=== PATIENT | female | born 1975 | race Caucasian/White ===

== ENCOUNTER 2018-10-17 09:07 | Inpatient (IN) | payer SELFPAY ==
--- NOTE | 2018-10-17 09:27 | PDOC.EVN ---
Event Note - Event Note Event Note: [facility] accept note OBGYN Attending I just received a call form Dr Coles in the ED about Ms Lion. She was first seen in [facility] ER with abdominal pain...CT scan there shouwed possible TOAs, no appy pathology. Left was [id number] and the right was 1.7x1.5x2cm on CT. She was sent here for possible admission. I have reviewed labs from [facility]. WBC was 25 with "dirty" urine there. I have ordered: Pelvic sono CBC here CMP Cath UA GC and CHL PCR VP3 I will plave admit orders to GYNECOLOGY for IV Rocephin/Flagyl and po doxy. I will eval when she arrives to floor as I am in L&D now with other patients.
[2018-10-17] MEDS ORDERED: Morphine 4 MG/ML VIAL ONE (09:30)
[2018-10-17] MEDS ORDERED: Ondansetron PF 4 MG/2 ML Vial ONE (09:54)
[2018-10-17 09:57] LABS: Hemoglobin 11.3 g/dL (12.0-16.0); Mean Corpuscular HGB CONC 34.1 g/dL (32.0-36.0); Mean Corpuscular Hemoglobin 30.7 pg (27.0-31.0); Mean Corpuscular Volume 90.2 fL (78.0-98.0); Mean Platelet Volume 6.4 fL (7.4-10.4); Platelet Count 591 thou/uL (130-400); RBC Distribution Width 11.6 % (11.5-14.5); Red Blood Cell (RBC) Count 3.69 mill/uL (4.20-5.40); White Blood Cell (WBC) Count 27.8 thou/uL (4.8-10.8)
[2018-10-17 10:04] LABS: Bilirubin Negative (Negative); Blood, Urine Trace (Negative); Clarity CLEAR (Clear); Glucose, Urine (Dipstick) Negative (Negative); Leukocyte Negative (Negative); Nitrite Negative (Negative); Protein, Urine (Dipstick) Negative (Neg-Trace); pH, Urine 6.5 (5.0-9.0)
[2018-10-17 10:06] LABS: Bacteria/HPF None Seen HPF (None Seen); Hyaline Casts/LPF 0-3 HYALINE CAST LPF (0-3 Hyaline); Pathc Cast-AUWi Flag 0.58 (0-2.49); Squamous Epithelial 0-3 HPF (0-3)
[2018-10-17 10:12] LABS: Specific Gravity, Urine Greater than 1.060 (1.002-1.036)
[2018-10-17 10:12] LABS: ALT (SGPT) 13 U/L (8-55); AST (SGOT) 16 U/L (5-34); Albumin 3.8 g/dL (3.5-5.0); Alkaline Phosphatase 119 U/L (40-150); Anion Gap 16 mmol/L (10-20); BUN (Urea Nitrogen) 6 mg/dL (7.0-18.7); Bilirubin, Total 0.9 mg/dL (0.2-1.2); Calc. Creatinine Clearance 0 mL/min (70-130); Calcium 9.3 mg/dL (7.8-10.44); Carbon Dioxide 24 mmol/L (22-29); Chloride 104 mmol/L (98-107); Estimated GFR-MDRD 81; Globulin 3.9 g/dL (2.4-3.5); Glucose 97 mg/dL (70-105); Potassium 3.2 mmol/L (3.5-5.1); Protein, Total 7.7 g/dL (6.0-8.3); Sodium 141 mmol/L (136-145)
[2018-10-17 10:26] LABS: Band 7 % (5-11); Lymphocytes 1 % (21-51); MDiff Complete? YES; Monocytes 2 % (0-10); Neutrophil 89 % (42-75); PLT Morphology Comment Appears Increased; Reactive Lymphocytes 1 % (0-10)
--- NOTE | 2018-10-17 11:04 | ULT ---
ULTRASOUND PELVIC TRANSVAGINAL: HISTORY: Abdominal pain, pelvic pain. COMPARISON: None. FINDINGS: Uterus measures 8.2 x 4.7 x 6 cm. Endometrial thickness is 3 mm. The right ovary measures 3.1 x 2.6 x 2.4 cm with a 1.2 cm cyst. The left ovary measures 4.6 x 4.2 x 3.3 cm with a 1.7 cm cyst. Adequate flow to both ovaries. The recently described tubo-ovarian absce ss is not well defined on this examination. IMPRESSION: Poorly defined what appears to be tubo-ovarian abscesses on the CT exam. POS: [facility]
--- NOTE | 2018-10-17 11:24 | HP ---
LOCATION: ER bed 3. TIME OF EVALUATION: 10:15 this morning. The patient's consult/request for admission was from Dr. Coles (Emergency Medicine). REASON FOR ADMISSION: Suspected bilateral tuboovarian abscesses. HISTORY OF PRESENT ILLNESS: This is a 42-year-old G3, P3, whose last menstrual period was 10/10/2018 and last sexual encounter was 10/08/2018 with the same partner of 4 years, with no condom. She states abdominal pain since 04:00 this morning. She first presented to [facility], where a CT scan was done and they found bilateral ovarian masses compatible with TOAs. Ultrasound here in the ER at [facility], while I was present for the exam, shows bilateral tuboovarian abscess structures, left greater than right. The left is approximately 4 to 5 cm and the right about 2 to 3 cm. Uterus is without gross abnormality. She also states some vaginal discharge, although, she usually does not have any vaginal complaints. No fevers, no diarrhea, nausea, or vomiting. REVIEW OF SYSTEMS: Complete review of systems was checked and is otherwise negative unless specified in the HPI. PAST MEDICAL HISTORY: Significant for migraines, but she is stable and not on any medication. PAST MEDICATIONS: Included amitriptyline for migraine prophylaxis, but she has stopped using this. ALLERGIES: NONE. SOCIAL HISTORY: Negative for alcohol, tobacco, and drug use. SURGICAL HISTORY: Tubal ligation done 17 years ago. OB HISTORY: She has had 3 vaginal deliveries with the last 17 years ago. PHYSICAL EXAMINATION: VITAL SIGNS: She is afebrile, but her pulse was 120 on arrival and then was down to 113 after IV fluids. MEDICATIONS ADMINISTERED: I believe she received Unasyn in [facility], but has not received antibiotics here while she has arrived to [facility] as she is being currently evaluated. DIAGNOSTIC STUDIES: Ultrasound reveals bilateral adnexal structures as previously dictated. Labs ordered. I have ordered gonorrhea and chlamydia PCR, I have ordered a vaginitis panel 3, I have ordered our own complete blood count as the white blood cell count in [place] was elevated at 25. I have also ordered a cath urine. Interventions ordered. I have ordered IV Rocephin and IV Flagyl, doxy will be given p.o. (triple antibiotics). ASSESSMENT: This is a 42-year-old G3, P3, with the last menstrual period of 10/10/2018 with suspected pelvic infection/tuboovarian abscesses. I have discussed care with the patient to include medical therapy. Surgical therapy will be reserved for failed medical improvement. I have also discussed with her the possibility of sexually transmitted infection present, although I have no evidence that is currently the case. I will await lab and diagnostic studies. She did have some white/yellow cervical discharge on speculum examination as the PCR swabs were collected. PLAN: 1. Admission for IV triple antibiotics as discussed. 2. Ultrasound performed. 3. Present for ultrasound performance. 4. Interventions ordered as previously dictated, follow labs. 5. I have ordered a CBC for 03:00 on 10/18/2018 to follow trend. 6. I have seen and evaluated the patient in the ER at bedside. 7. Questions answered. Job ID: [id number]
[2018-10-17] MEDS: Sodium Chloride 0.9% 1,000 ML IV SCH (11:42)
[2018-10-17] MEDS ORDERED: cefTRIAXone\\ROCEPHIN 2 GM in Sodium Chloride 0.9% 100 ML IVPB SCH (11:45)
[2018-10-17] MEDS ORDERED: Ondansetron PF 4 MG/2 ML Vial IVP PRN (11:45)
[2018-10-17] MEDS ORDERED: Ondansetron ODT 4 MG TAB PO PRN (11:45)
[2018-10-17] MEDS ORDERED: Acetaminophen 325 MG TAB PO PRN (11:45)
[2018-10-17] MEDS: Lactated Ringer's 1,000 ML IV SCH ×2 (11:58→13:41)
--- NOTE | 2018-10-17 12:14 | PDOC.EVN ---
Event Note - Event Note Event Note: Lab Check: WBC 28
--- NOTE | 2018-10-17 12:17 | PDOC.EVN ---
Event Note - Event Note Event Note: LAB: VP3 with Trichomonas. STI identified. Flagyl has been ordered already. GC and chlamydia pending. I will relay this STD information to her shortly after L&D care needs addressed
[2018-10-17] MEDS: metroNIDAZOLE 500 MG in Premix Bag 1 BAG IVPB SCH ×2 (13:32→21:23)
[2018-10-17] MEDS: Ibuprofen 600 MG TAB PO PRN (14:43)
[2018-10-17 15:21] LABS: Syphilis Antibody Nonreactive (Nonreactive); Syphilis Antibody Index 0.05 S/CO (<1.00 Non-Reactive)
[2018-10-17 15:22] LABS: HIV (1/2) Antibody/Antigen Non-Reactive (NonReactive); HIV 1/2 INDEX 0.11 S/CO (<1.00)
[2018-10-17] MEDS: HYDROcodone/Acetaminophen 5/325 mg Tablet PO PRN ×2 (18:10→22:33)
--- NOTE | 2018-10-17 18:10 | PDOC.EVN ---
Event Note - Event Note Event Note: HIV and RPR negative on lab check
[2018-10-17] MEDS: Doxycycline 100 MG CAP PO SCH (21:23)
--- NOTE | 2018-10-17 22:23 | PDOC.EVN ---
Event Note - Event Note Event Note: @2210: Bed Check: Patient seen at bedside. results of HIV and RPR (negative) reviewed with her. GC and CHL tests still pending repeat CBC for AM Continue Rocephin/Flagyl and po Doxy
[2018-10-18] MEDS: Lactated Ringer's 1,000 ML IV SCH ×4 (00:01→23:37)
[2018-10-18] MEDS: Sodium Chloride 0.9% 1,000 ML IV SCH ×3 (00:11→11:45)
[2018-10-18] MEDS: Ondansetron PF 4 MG/2 ML Vial IVP PRN ×2 (00:14→16:59)
[2018-10-18] MEDS ORDERED: Promethazine HCl 25 MG/ML VIAL IM PRN (04:46)
[2018-10-18] MEDS: metroNIDAZOLE 500 MG in Premix Bag 1 BAG IVPB SCH ×3 (05:04→21:17)
--- NOTE | 2018-10-18 05:22 | PDOC.EVN ---
Event Note - Event Note Event Note: HD 2 Admitted 10/17 Working DX: Bilateral TOAs; Trichomoniasis S. Still with pelvic pain; nausea O. TM was 101.8 yesterday at 1120 Repeat CBC pending this AM Blood CX pending GC and CHL pending A/P: TOAs, initial WBC count was 27. continue trple ABX (rocephin/flagyl/doxy) Await labs..serial CBCs follow GC and CHl results
[2018-10-18 05:45] LABS: #Eosinphils 0.1 thou/uL (0.0-0.7); #Lymphocytes 0.6 thou/uL (1.20-3.40); #Monocytes 0.9 thou/uL (0.11-0.59); %Basophils 0.1 % (0.0-1.0); %Eosinophils 0.4 % (0.0-10.0); %Monocytes 4.4 % (0.0-10.0); %Neutrophils 92.3 % (42.0-75.0); Mean Corpuscular HGB CONC 33.7 g/dL (32.0-36.0); Mean Corpuscular Hemoglobin 30.8 pg (27.0-31.0); Mean Corpuscular Volume 91.6 fL (78.0-98.0); Mean Platelet Volume 6.5 fL (7.4-10.4); Platelet Count 501 thou/uL (130-400); RBC Distribution Width 11.5 % (11.5-14.5); Red Blood Cell (RBC) Count 3.23 mill/uL (4.20-5.40); White Blood Cell (WBC) Count 20.6 thou/uL (4.8-10.8)
[2018-10-18] MEDS: Ibuprofen 600 MG TAB PO PRN (06:45)
[2018-10-18] MEDS: HYDROcodone/Acetaminophen 5/325 mg Tablet PO PRN ×3 (06:46→21:16)
--- NOTE | 2018-10-18 07:50 | PDOC.EVN ---
Event Note - Event Note Event Note: AM CBC with WBC 20, down from 27
[2018-10-18] MEDS ORDERED: Sodium Chloride 0.9% 20 ML ONE (07:58)
[2018-10-18] MEDS: cefTRIAXone\\ROCEPHIN 2 GM in Sodium Chloride 0.9% 100 ML IVPB SCH (08:31)
[2018-10-18] MEDS ORDERED: diphenhydrAMINE 50 MG/ML VIAL IVP PRN (08:45)
--- NOTE | 2018-10-18 08:47 | PDOC.EVN ---
Event Note - Event Note Event Note: 845AM: CAll from floor. Pt complaining of headache. States feels like migraine. Pt has history of migraines. Will treat initially with reglan 10mg q30min prn x4 and benadryl 25mg iv q1hr x2 and reassess
[2018-10-18] MEDS: Metoclopramide HCl 10 MG/2 ML VIAL IVP PRN ×2 (09:29→10:13)
[2018-10-18] MEDS: Doxycycline 100 MG CAP PO SCH ×2 (10:19→21:16)
[2018-10-18] MEDS ORDERED: Ketorolac Tromethamine 30 MG/ML VIAL IVP SCH (18:30)
[2018-10-18] MEDS ORDERED: Ibuprofen 600 MG TAB PO PRN (23:23)
[2018-10-19] MEDS: metroNIDAZOLE 500 MG in Premix Bag 1 BAG IVPB SCH ×3 (05:54→21:32)
[2018-10-19 07:31] LABS: #Eosinphils 0.1 thou/uL (0.0-0.7); #Lymphocytes 0.9 thou/uL (1.20-3.40); #Neutrophils 13.1 thou/uL (1.40-6.50); %Basophils 0.2 % (0.0-1.0); %Lymphocytes 6.2 % (21.0-51.0); %Monocytes 6.4 % (0.0-10.0); %Neutrophils 86.2 % (42.0-75.0); Hemoglobin 9.2 g/dL (12.0-16.0); Mean Corpuscular HGB CONC 33.5 g/dL (32.0-36.0); Mean Corpuscular Hemoglobin 30.8 pg (27.0-31.0); Mean Platelet Volume 6.9 fL (7.4-10.4); Platelet Count 453 thou/uL (130-400); RBC Distribution Width 11.5 % (11.5-14.5); White Blood Cell (WBC) Count 15.2 thou/uL (4.8-10.8)
[2018-10-19] MEDS: cefTRIAXone\\ROCEPHIN 2 GM in Sodium Chloride 0.9% 100 ML IVPB SCH (08:41)
[2018-10-19] MEDS: Sodium Chloride 0.9% 1,000 ML IV SCH (08:42)
[2018-10-19] MEDS: HYDROcodone/Acetaminophen 5/325 mg Tablet PO PRN ×3 (08:43→23:09)
[2018-10-19] MEDS: Lactated Ringer's 1,000 ML IV SCH ×2 (08:43→20:56)
[2018-10-19] MEDS: Doxycycline 100 MG CAP PO SCH ×2 (09:00→21:32)
--- NOTE | 2018-10-19 09:08 | PRG ---
DATE OF SERVICE: 10/19/2018 SUBJECTIVE: The patient is a 42-year-old female, who is on hospital day #3 for bilateral tubo-ovarian abscesses. The patient was then placed on Rocephin, doxycycline, and Flagyl. The patient has remained afebrile for the last 24 hours with a T-max of 100 yesterday morning, this morning temperature is 98.5. Today , the patient reports that her pain has been improving, though still present and still quite tender. She also reports that she believes [place] that she has been taking for pain control has been giving her migraines. OBJECTIVE: VITAL SIGNS: Most recent vital signs; temperature is 98.5, pulse of 83, respiratory rate of 16, saturating 98% on room air, and blood pressure 115/65. GENERAL: She appears to be in no acute distress. She is alert, oriented, cooperative, and pleasant to interact with. HEENT: Head is normocephalic and atraumatic. ABDOMEN: Soft, but is still quite tender to palpation. EXTREMITIES: Nontender. Her labs this morning shows marked improvement with a white count of 15.2, hemoglobin of 9.2, hematocrit 27.6, and platelets at 453,000, down from a white count of 28. Blood culture is still pending with no growth to date, and GC and chlamydia are still pending. ASSESSMENT AND PLAN: The patient is a 42-year-old female with bilateral tubo-ovarian abscesses on Rocephin, doxycycline, and Flagyl. The patient had a clinical response to antibiotic use, and we will continue her current course. The patient has concern that her [place] has been giving her migraines, which she has successfully treated with yesterday with Reglan and Benadryl. We will put Toradol today on as an option in place of ibuprofen and see if this can help manage her pain sufficiently to avoid any need stronger narcotic medication. Job ID: [id number] MTDD
[2018-10-19] MEDS: Ondansetron PF 4 MG/2 ML Vial IVP PRN (10:26)
[2018-10-19] MEDS: Ketorolac Tromethamine 30 MG/ML VIAL IVP SCH ×3 (11:39→23:57)
--- NOTE | 2018-10-19 16:39 | PDOC.EVN ---
Event Note - Event Note Event Note: Lab check: Blood cultures negative GC and Chl still pending
[2018-10-19 19:03] LABS: Chlamydia by PCR Not Detected (NotDetected); GC by PCR Not Detected (NotDetected)
--- NOTE | 2018-10-19 20:52 | PDOC.EVN ---
Event Note - Event Note Event Note: Lab check: GC and chlamydia are negative
[2018-10-19] MEDS ORDERED: Zolpidem Tartrate 5 MG TAB PO PRN (21:07)
--- NOTE | 2018-10-20 00:50 | PDOC.EVN ---
Event Note - Event Note Event Note: Admitted 10/17/18 S. Feeling better O. 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
[2018-10-20] MEDS: HYDROcodone/Acetaminophen 5/325 mg Tablet PO PRN (03:57)
[2018-10-20 05:37] LABS: #Eosinphils 0.2 thou/uL (0.0-0.7); #Lymphocytes 1.1 thou/uL (1.20-3.40); #Monocytes 0.9 thou/uL (0.11-0.59); #Neutrophils 8.2 thou/uL (1.40-6.50); %Basophils 0.2 % (0.0-1.0); %Eosinophils 2.3 % (0.0-10.0); %Lymphocytes 10.8 % (21.0-51.0); %Monocytes 8.8 % (0.0-10.0); %Neutrophils 77.8 % (42.0-75.0); Mean Corpuscular HGB CONC 33.4 g/dL (32.0-36.0); Mean Corpuscular Hemoglobin 30.9 pg (27.0-31.0); Mean Corpuscular Volume 92.5 fL (78.0-98.0); Mean Platelet Volume 6.8 fL (7.4-10.4); Platelet Count 456 thou/uL (130-400); RBC Distribution Width 11.6 % (11.5-14.5); Red Blood Cell (RBC) Count 2.92 mill/uL (4.20-5.40); White Blood Cell (WBC) Count 10.5 thou/uL (4.8-10.8)
[2018-10-20] MEDS: Lactated Ringer's 1,000 ML IV SCH (05:47)
[2018-10-20] MEDS: metroNIDAZOLE 500 MG in Premix Bag 1 BAG IVPB SCH (05:47)
[2018-10-20] MEDS: Ketorolac Tromethamine 30 MG/ML VIAL IVP SCH (05:47)
--- NOTE | 2018-10-20 07:01 | PDOC.EVN ---
Event Note - Event Note Event Note: DISCHARGE NOTE Patient initially admitted on 10/17/18 with pelvic pain and bilateral adnexal mases compatible with TOAs (CT was done in [facility] and sono done at [facility]). She was started on antibiotics for suspected TOAs/PID. VP3 was positive for trichomoniasis. Initial WBC was 25. The GC and Chlamydia PCR test returned negative, as did HIV and RPR. She became afebrile while on IV antibiotics and was discharged home improved, on 10/20/18. Discharge medication: Doxy and Flagyl. She is to follow up with gynecology in 2 weeks. Patient seen by me on the morning of discharge. Vitals reviewed, afebrile. No evidence surgical abdomen. Final WBC 10/20/18 was 10.5.
[2018-10-20 08:22] VITALS: BP 121/79; TEMP 98.7
[2018-10-20] MEDS: Doxycycline 100 MG CAP PO SCH (08:50)
== END 2018-10-20 09:11 | disposition home or self-care (01) | DRG 759 ==
LOC: ERS 09:07 → 3SE 09:27
PROVIDERS: ADMIT Obstetrics & Gynecology; ATTEND Obstetrics & Gynecology
DX: N70.93 Salpingitis and oophoritis, unspecified (principal)
CPT/HCPCS: 36415; 51701; 76856; 85025; 86780; 87389; 87480; 87491; 87510; 87591; 87660; 93976; 96361; 96374; 96375; A4353; J0696; J1200; J1885; J2270; J2405; J2550; J2765; J7050